=== PATIENT | female | born 1990 | race African-American/Black ===

== ENCOUNTER 2016-04-24 22:41 | Emergency (ER) | payer OTHER, MEDICAID ==
[~2016-04-24] VITALS: Ht 163.8 cm; Wt 130.0 kg
[~2016-04-24 22:41] MED LIST: ALBUAER3 INH; BENZ100 PO; ZITHTAB PO
[2016-04-24 22:45] VITALS: BP 124/81; PULSE 94; RESP 16; TEMP 98.6; O2SAT 96
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
== END 2016-04-25 01:05 | disposition home or self-care (01) ==
LOC: NEPB 22:41
DX: S39.012A Strain of muscle, fascia and tendon of lower back, initial encounter (principal); S46.912A Strain of unspecified muscle, fascia and tendon at shoulder and upper arm level, left arm, initial encounter; V43.52XA Car driver injured in collision with other type car in traffic accident, initial encounter; Y92.410 Unspecified street and highway as the place of occurrence of the external cause; Y99.8 Other external cause status
CPT/HCPCS: 73030; 99284

== ENCOUNTER 2017-04-29 12:54 | Emergency (ER) | payer SELFPAY ==
[~2017-04-29] VITALS: Ht 162.6 cm; Wt 153.0 kg
[2017-04-29 12:59] VITALS: BP 154/88; PULSE 77; RESP 16; TEMP 98.5; O2SAT 100
[2017-04-29 13:49] VITALS: BP 142/79; PULSE 78; RESP 18; O2SAT 98
[2017-04-29] MEDS ORDERED: NORE1TAB60 PO (13:54)
--- NOTE | 2017-04-29 13:56 | PD ---
HPI Chief Complaint: Car Pre Cooler Problem/Complaint Time Seen by Provider: 13:39 Travel History International Travel<30 days: No Contact w/Intl Traveler<30days: No Traveled to known affect area: No History of Present Illness HPI C/O NO PERIOD SINCE FEBRUARY, IS CONCERNED THAT SHE MIGHT BE , HOWEVER TODAY SHE STARTED TO HAVE VAGINAL BLEEDING AND WAS CONCERN FOR POSSIBLE MISCARRIAGE. pATIENT STATED THAT SHE HAS NOT BEING DIAGNOSED WITH AT ANY POINT....PATIENT DENIES ABD PAIN/N/V/D/CP/HORENR/FEVER/DIZZINESS/LIGHTHEADED ALL:DENIES PMHX/PSHX: DENIES PFSH Past Medical History ?: Unknown Social History Alcohol Use: No Tobacco Use: No Substance Use: No Allergies-Medications (Allergen,Severity, Reaction): Coded Allergies: No Known Allergies (Unverified Adverse Reaction, Unknown, 04/29/17) Reported Meds & Prescriptions Reported Meds & Active Scripts Active No Active Prescriptions or Reported Medications Review of Systems Except as stated in HPI: all other systems reviewed are Neg General / Constitutional: No: Fever Eyes: No: Visual changes HENT: No: Headaches Cardiovascular: No: Chest Pain or Discomfort Respiratory: No: Shortness of Breath Gastrointestinal: No: Abdominal Pain Genitourinary: Positive: Vaginal Bleeding Musculoskeletal: No: Pain Skin: No Rash Neurologic: No: Weakness Psychiatric: No: Depression Endocrine: No: Polydipsia Hematologic/Lymphatic: No: Easy Bruising Physical Exam Narrative GENERAL: SKIN: Warm and dry. HEAD: Atraumatic. Normocephalic. EYES: Pupils equal and round. No scleral icterus. No injection or drainage. ENT: No nasal bleeding or discharge. Mucous membranes pink and moist. NECK: Trachea midline. No JVD. CARDIOVASCULAR: Regular rate and rhythm. RESPIRATORY: No accessory muscle use. Clear to auscultation. Breath sounds equal bilaterally. GASTROINTESTINAL: Abdomen soft, non-tender, nondistended. MUSCULOSKELETAL: Extremities without clubbing, cyanosis, or edema. No obvious deformities. NEUROLOGICAL: Awake and alert. No obvious cranial nerve deficits. Motor grossly within normal limits. Five out of 5 muscle strength in the arms and legs. Normal speech. PSYCHIATRIC: Appropriate mood and affect; insight and judgment normal. Data Data Last Documented VS Vital Signs Date Time Temp Pulse Resp B/P (MAP) Pulse Ox O2 Delivery O2 Flow Rate FiO2 04/29/17 12:59 98.5 77 16 154/88 (110) 100 Orders Orders Ed Urine Pregnancytest Poc (04/29/17 13:04) [facility] Medical Decision Making Medical Screen Exam Complete: Yes Emergency Medical Condition: Yes Medical Record Reviewed: Yes Differential Diagnosis DUB V V MENORRHAGIA Narrative Course TEST NEGATIVE, PATIENT IS NOT ON BCP, AND STATES FLOW IS HEAVY, I ADVISED IF IT CONTINUES, TO START BCP RX GIVEN. Diagnosis Primary Impression: DUB Patient Instructions: Dysfunctional Uterine Bleeding (ED), General Instructions Additional Instructions: DO NOT SMOKE WHILE ON CONTROL PILLS....PLEASE BE ADVISED THAT AT THE END OF THE PACK YOU WILL START HAVING MENSTRUAL FLOW AGAIN AND IT MAY BE HEAVIER THAN USUAL BUT IT WILL STOP. Scripts Norethindrone-Ethinyl Estradiol (Loestrin 04/24) 1-20 Mg-Mcg Tab 1 TAB PO DAILY, #1 PACK 0 Refills Prov: Sawyer Batres MD 04/29/17 Disposition: 01 DISCHARGE HOME Condition: Stable Sawyer Batres MD Apr 29, 2017 13:56
[2017-04-29] MEDS ORDERED: TRAM50 PO (14:05)
== END 2017-04-29 14:08 | disposition home or self-care (01) ==
LOC: PHED 12:54
DX: N93.8 Other specified abnormal uterine and vaginal bleeding (principal)
CPT/HCPCS: 84703; 99283

== ENCOUNTER 2017-08-03 21:31 | Emergency (ER) | payer MEDICAID ==
[~2017-08-03] VITALS: Ht 161.3 cm; Wt 127.0 kg
[~2017-08-03 21:31] MED LIST changes: -ALBUAER3 INH; -BENZ100 PO; +NORE1TAB60 PO; +TRAM50 PO; -ZITHTAB PO
[2017-08-03 22:24] VITALS: BP 141/80; PULSE 77; RESP 20; TEMP 99; O2SAT 99
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
--- NOTE | 2017-08-04 00:24 | RADRPT ---
EXAM DATE/TIME: 08/03/2017 23:56 [facility] COMPARISON: No previous studies available for comparison. INDICATIONS : Right ankle pain post fall. MEDICAL HISTORY : None. SURGICAL HISTORY : None. ENCOUNTER: Initial ACUITY: 1 day PAIN SCORE: 7/10 LOCATION: Right lateral ankle. FINDINGS: Three view exam was performed of the right ankle. The bony structures are in normal alignment. No e vidence of fracture, dislocation, or soft tissue swelling. The ankle mortise is intact. No radiopaq ue foreign bodies are seen. Bony mineralization is normal. CONCLUSION: No fracture. Bobby Montalvo MD on August 04, 2017 at 0:22 Board Certified Radiologist. This report was verified electronically.
--- NOTE | 2017-08-04 00:24 | RADRPT ---
EXAM DATE/TIME: 08/03/2017 23:56 [facility] COMPARISON: FOOT RIGHT COMPLETE ([id number]), April 16, 2015, 19:05. INDICATIONS : Right foot pain post fall. MEDICAL HISTORY : None. SURGICAL HISTORY : None. ENCOUNTER: Initial ACUITY: 1 day PAIN SCORE: 7/10 LOCATION: Right lateral foot. FINDINGS: Three view examination of the right foot demonstrates no soft tissue swelling, dislocation, or fractu re. The tarsal bones appear intact. The interphalangeal and metatarsophalangeal joints are intact. The calcaneus is intact. Bony mineralization is normal. CONCLUSION: No fracture. Bobby Montalvo MD on August 04, 2017 at 0:22 Board Certified Radiologist. This report was verified electronically.
[2017-08-04] MEDS ORDERED: KETO10 PO (00:34)
== END 2017-08-04 00:43 | disposition home or self-care (01) ==
LOC: PHED 21:31
DX: S93.491A Sprain of other ligament of right ankle, initial encounter (principal); E66.9 Obesity, unspecified; X50.1XXA Overexertion from prolonged static or awkward postures, initial encounter; Y93.01 Activity, walking, marching and hiking
CPT/HCPCS: 73610; 73630; 99283; L1906